=== PATIENT | female | born 1945 | race Caucasian/White ===

== ENCOUNTER 2019-04-01 15:52 | Inpatient (IN) ==
[2019-04-01] MEDS ORDERED: SALINE LOCK IV FLUID XX ONE (16:17)
--- NOTE | 2019-04-01 19:31 | HISTORY AND PHYSICAL ---
CHIEF COMPLAINT: Severe pain in my right leg. HISTORY OF PRESENT ILLNESS: This is a 74-year-old, white female that is well known to me. She has had a little bit of a taras course over the last 3 to 4 weeks. Apparently she has been having fairly severe pain in the right lower extremity and has been seeing Dr. Joe Donovan for that. It was believed that she might have arthritis in her hip and knee, but that has not proven to be the case through diagnostics performed by Dr. Donovan. She also underwent a MRI of the lumbar spine for lumbar radiculopathy, which also did not prove to be an etiology. Her pain continue to just severely worsen. It became extremely excruciating over the weekend, particularly Saturday. She saw Dr. Donovan on Saturday, and he contacted me and asked me to see her in followup. She describes just horrific pain that comes and goes. She cannot walk. Her leg is cold. She cannot bear weight on her leg. In retrospect, she has been having problems now for the last approximately 4 weeks. Because of her presentation in my office and the severity of her pain, she was admitted to [facility]. PAST SURGICAL HISTORY: She had a partial hysterectomy in 1980, bladder sling procedure in 1997. Left knee arthroscope [place] [address] Lauren Salinas. MEDICAL ILLNESSES: She has had a long history of degenerative joint disease, peripheral neuropathy, hypertension. CURRENT MEDICATIONS: Include Nabumetone, Relafen 750 mg b.i.d., gabapentin 300 mg 1 in the morning and 3 at night, Ativan 0.5 mg b.i.d. p.r.n., meclizine 25 mg at bedtime, Flonase p.r.n., Zofran p.r.n., triamterene/hydrochlorothiazide 37.5/25, 1 a day, omeprazole 40 mg a day, lisinopril 20 mg b.i.d., Lotrisone cream p.r.n., dicyclomine 10 mg before meals p.r.n., Singulair 10 mg a day, meloxicam 10 mg 1 a day. She has been using some of her 's narcotic, apparently. ALLERGIES: To Paxil and Phenergan. SOCIAL HISTORY: She is a white female. She has 2 children, both grown. She herself is very active. 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 She stopped smoking in 1979. She does not consume alcohol. FAMILY HISTORY: Remarkable in that she has 2 sisters living, both of which are healthy. She has had 1 brother that has . Her mother at age 58 of breast cancer. Her dad in his 80s of dementia and COPD. PHYSICAL EXAMINATION: GENERAL: Shows a well-developed, white female who is in severe distress due to pain in the right lower extremity. It is unrelenting. HEENT: TMs are clear. Pupils equally round and reactive. Fundi benign. Nasal mucosa is moist. Oropharynx is clear. NECK: Supple. Good carotid pulses. No bruits. LUNGS: Clear. HEART: Regular rate and rhythm. No murmur or gallop. ABDOMEN: Soft, nontender. There are no elicitable pulses of her femoral arteries bilaterally. MUSCULOSKELETAL: The right leg is obviously pale, more so than the left. The right leg is markedly cold and somewhat cyanotic. The left leg is warmer to touch. I find no elicitable pulses of the dorsal pedis or posterior tibialis pulses on either foot. The leg is extremely excruciatingly painful to move. IMPRESSION: 1. By clinical presentation, the right lower extremity particularly his pulseless and extremely cool to touch and pale. I am concerned about the arterial insufficiency/obstruction with the pulseless extremity. The left lower extremity is similar, but it is not quite as severe. I do not detect any femoral artery pulses, which is concerning. 2. I detect no pulsatile abdominal masses. 3. Long history of neuropathic pain of the lower extremities. 4. Long history of hypertension. 5. Long history of generalized degenerative change/arthritis. PLAN: 1. Will admit to [facility]. 2. Will get a stat CTA of the aorta with runoff. 3. Will get a stat Doppler venous arterial flow study of the lower extremities. 4. I have talked with Dr. Fernando Vizcarra via phone, and he is aware of the patient's admission and will follow up with her scans. 5. Will give IV morphine through saline lock. 6. Subcutaneous Lovenox. 7. Will judiciously restart her medications. 8. Will judiciously treat her pain. cc: Christian Shaw MD
[2019-04-01] MEDS: MORPHINE IV PRN (20:18)
[2019-04-01] MEDS: KLONOPIN PO PRN (20:18)
[2019-04-01 20:27] LABS: BASO# 0.08 X1000 (0.0-0.2); BASO% 0.7 % (0.0-0.8); EOS# 0.13 X1000 (0.0-0.7); EOS% 1.1 % (0.0-10.0); HEMATOCRIT 40.5 % (37.0-47.0); HEMOGLOBIN 13.2 g/dL (12.0-16.0); IMM GRAN# 0.07 X1000 (0.0-0.04); IMM GRAN% 0.6 % (0.0-0.5); LYMPH# 2.38 X1000 (1.2-3.4); LYMPH% 19.7 % (20.5-51.1); MCH 29.5 PG (27-31); MCHC 32.6 g/dL (33-37); MCV 90.4 FL (81-99); MONO# 0.77 X1000 (0.11-0.59); MONO% 6.4 % (1.7-9.3); MPV 10.6 FL (7.4-10.4); NEUT# 8.65 X1000 (1.4-6.5); NEUT% 71.5 % (42.2-75.2); PLT 275 X1000 (130-400); RBC 4.48 XMIL (4.2-5.4); RDW 14.1 % (11.5-14.5); WBC 12.08 X1000 (4.8-10.8)
[2019-04-01 20:33] LABS: INR 0.98; PROTIME 13.7 Seconds (11.0-16.0)
--- NOTE | 2019-04-01 20:51 | CONSULTATION ---
DATE OF CONSULTATION: 04/01/2019 HISTORY OF PRESENT ILLNESS: Ms. Jennifer Joy is a 74-year-old white female, patient of Dr. Christian Shaw, who for the last 2 to 3 weeks has been experiencing increasing right lower extremity pain. She states this weekend it has become worse where she has a hard time standing at the counter in the kitchen, or even working in the house. She lays in bed and has to take pain medication because of the pain involving her right leg. She describes the pain mostly in the anterior aspect of her right leg, but really it involves her right thigh and leg. She has seen Dr. Fernando Lau in Orthopedic Surgery and had her hip injected, which helped with some lower back pain and right hip pain, but did not help with the pain going down her leg. She is usually an active lady and has had to take narcotics because of this worsening right lower extremity pain. She is not a smoker. She quit when she was in her 30s. She has had no heart disease. She has never been told that she has atherosclerosis. She has no diabetes. PHYSICAL EXAMINATION: General: Ms. Joy is an overweight older white female who is not in acute distress. She wears glasses. She is awake, cooperative. She has no evidence of jaundice and no oral lesions. Satisfactory dentition. No cervical or supraclavicular lymphadenopathy. Heart: Regular rate. Lungs: Clear to auscultation and percussion bilaterally. Abdomen: Soft. There was no tenderness. She had no costovertebral tenderness. Extremities: She did have palpable femoral pulses bilaterally and they were felt to be equal. It was difficult to palpate her popliteal or pedal pulses. Her right leg did not seem to be cooler than her left. She is able to move her toes and she had feeling involving the right foot. She had no focal deficits. ASSESSMENT: A noninvasive vascular study has been performed and at rest it appeared that she had normal arterial pulse waveforms throughout both lower extremities. Her right ankle-brachial index was 1.12 and left ankle-brachial index was 1.10, suggesting satisfactory arterial flow to both lower extremities. This noninvasive vascular study suggests that this is not a vascular problem involving the pain of her right leg, and I wondered if it could originate from a lower back issue, or a nerve tissue involving her right leg. Her labs have not been drawn. A CT angiogram has not been performed. With this noninvasive vascular study, that CT angiogram probably will not show significant atherosclerosis. cc: MD Christian Thornton MD
[2019-04-01 20:57] LABS: ALB/GLOB RATIO 1.4; ALBUMIN 4.2 g/dL (3.5-5.0); CALCIUM 10.6 mg/dL (8.8-10.2); TOTAL BILIRUBIN 0.2 mg/dL (0.20-1.00); TOTAL PROTEIN 7.3 g/dL (6.3-8.3)
--- NOTE | 2019-04-01 21:09 | VASCULAR LAB ---
PROCEDURE NAME: Arterial Bilateral Legs - 04/01/2019 ORDERING PHYSICIAN: Christian Shaw MD. HISTORY: She is not a diabetic. She does have high blood pressure. She quit smoking 40 years ago. She is a 74-year-old female. INDICATIONS: Pain in her right lower extremity, which is severe. FINDINGS: Systolic brachial blood pressure on the right is 127 mmHg, on the left is 128 mmHg, right high thigh 163 mmHg, left high thigh 177 mmHg, right low thigh 151 mmHg, left low thigh is 162 mmHg, right calf 147 mmHg, left calf 152 mmHg, right ankle 143 mmHg, left ankle 141 mmHg. There is pulsatile flow in both feet and both great toes. At rest, the right ankle-brachial index is 1.12. Left ankle-brachial index is 1.10. INTERPRETATION: There appears to be normal pulse waveforms throughout both lower extremities, and they are equal. She appears to have normal arterial flow to her feet bilaterally at rest. cc: MD Christian Thornton MD
--- NOTE | 2019-04-01 21:21 | Diag Imaging Result Doc PS360 ---
EXAM: CT ANGIOGRAM AORTA W/RUNOFF - 04/01/2019 HISTORY: claudication right leg/pulseless TECHNIQUE: CT angiogram aorta with runoff with intravenous contrast. Axial, coronal, and and 3-D MIP images are obtained. COMPARISON: None. FINDINGS: The aorta, bilateral common iliac arteries, bilateral external iliac arteries, and bilateral common femoral arteries are patent. The bilateral superficial femoral and popliteal arteries are patent. There is relatively intact three vessel lower leg runoff to the ankle on the right. There is possibly some atherosclerotic narrowing of the right posterior tibial artery at the ankle level. There is primarily two-vessel lower leg runoff on the left consisting of the anterior tibial and peroneal arteries. The left posterior tibial artery appears small. There is opacification of some deep venous structures at the left lower leg of uncertain significance, although the possibility of some sort of arteriovenous fistulous communication cannot be excluded. There are lumbar spine degenerative changes noted. There are substantial hypertrophic changes of the right L5-S1 facet. IMPRESSION: Intact appearing runoff on the right to the ankle. There is possible atherosclerotic narrowing of the right posterior tibial artery at the ankle. Intact appearing runoff on the left to the popliteal trifurcation. The left anterior tibial and peroneal arteries appear to be patent to the ankle level. The left posterior tibial artery appears small and may not be patent to the ankle. There is some opacification of deep venous structures noted at the left lower leg. Electronically signed by Cornelius Pimentel 04/01/2019 9:19 PM
[2019-04-01] MEDS: LOVENOX SUBQ SCH (22:57)
[2019-04-01] MEDS: NEURONTIN PO SCH (22:59)
[2019-04-01] MEDS: PRINIVIL PO SCH (22:59)
[2019-04-01] MEDS: SOLU-MEDROL IV SCH (23:00)
[2019-04-01 23:13] LABS: URINE SOURCE CLEAN CATCH
[2019-04-02 00:36] LABS: BILIRUBIN URINE NEGATIVE (NEGATIVE); BLOOD URINE NEGATIVE (NEGATIVE); COLOR YELLOW; GLUCOSE URINE NEGATIVE (NEGATIVE); KETONE URINE NEGATIVE (NEGATIVE); LEUKOCYTES URINE SMALL (NEGATIVE); NITRITE URINE POSITIVE (NEGATIVE); PH URINE 6.5; PROTEIN URINE TRACE mg/dL (NEGATIVE); TURBIDITY URINE CLEAR (CLEAR); UROBILINOGEN URINE NORMAL (NORMAL)
[2019-04-02 00:39] LABS: UR EPITHELIAL CELLS <10 /HPF (<10); URINE BACTERIA 4+ /HPF; URINE RBC <10 /HPF (<10)
[2019-04-02 00:46] LABS: SP GRAVITY URINE < 1.005
[2019-04-02] MEDS: MORPHINE IV PRN ×3 (01:23→22:44)
[2019-04-02] MEDS: LOVENOX SUBQ SCH ×2 (05:53→16:16)
[2019-04-02] MEDS: SOLU-MEDROL IV SCH ×3 (05:53→21:29)
--- NOTE | 2019-04-02 08:03 | EKG Report ---
Test Performed on : 04/02/2019 07:02:02 AM Test Reason : CP Blood Pressure : / mmHG Vent. Rate : 071 BPM Atrial Rate : 071 BPM P-R Int : 134 ms QRS Dur : 074 ms QT Int : 402 ms P-R-T Axes : 042 -11 002 degrees QTc Int : 436 ms Normal sinus rhythm. Voltage criteria for left ventricular hypertrophy Abnormal ECG When compared with ECG of 16-SEP-2016 02:20, No significant change was found Confirmed by Edison HINTON, Zeeshan Del Rosario ([id number]) on 04/03/2019 9:05:29 AM
[2019-04-02] MEDS: PRINIVIL PO SCH ×2 (09:09→21:29)
[2019-04-02] MEDS: KLONOPIN PO PRN (09:09)
[2019-04-02] MEDS: NEURONTIN PO SCH ×2 (09:10→21:29)
[2019-04-02] MEDS ORDERED: TORADOL SCH (12:45)
--- NOTE | 2019-04-02 12:57 | PROGRESS NOTE ---
DATE: 04/02/2019 CURRENT TIME: 1230 hours. CHIEF COMPLAINT: Feeling better. VITAL SIGNS: Temperature 97.9 degrees, pulse 78, respirations 16, blood pressure 122/66, O2 saturation 93% on room air. I and O, she has voided approximately 300 mL. Not all were recorded. She is eating properly. LABORATORY DATA: Urine is growing a gram-negative liam, 100,000 colonies. MRA, please see report. There are some very nonspecific vascular changes, particularly in the left lower extremity. There is a narrowing of the anterior tibial artery. There is also a small narrowing of the right lower anterior tibial at the ankle. There is no obvious obstruction. There is no aneurysm. There are no blockages in the femoral nor iliac areas. PHYSICAL EXAMINATION: General: Shows a pleasant, white female, sitting up, eating lunch and is comfortable. Lungs: Clear. Heart: With a regular rate and rhythm. No murmur, rub, or gallop. Abdomen: Soft. Musculoskeletal: Shows that the [*] is warm and pink. There is still tenderness in the right knee with marked degenerative change of the right knee. IMPRESSION: 1. Extreme unrelenting pain of the right lower extremity which was believed to be vascular insufficiency, which has been proven negative. It does appear that she has fairly extensive degenerative change of the right knee. 2. She does have known sensory/motor nerve neuropathy of the lower extremities and this may be an exacerbation of that disorder. 3. Anxiety/panic which resulted in her extreme pain. PLAN: 1. I did review her MRI done of the lumbar spine done by Dr. Lau. There was no obvious spinal stenosis or impingement issues of the lumbar spine that would account for her problem. 2. We will maximize her medications. 3. We will attempt to try and finish her nuclear bone scan which Dr. Lau had ordered. The patient had been dosed with her nuclear tagged medicine but she was not able to proceed with the imaging portion. I would like to see that before we let her go. cc: Christian Shaw MD
[2019-04-02] MEDS: TORADOL PO SCH ×3 (14:42→22:45)
[2019-04-02] MEDS: MACROBID PO SCH (21:29)
[2019-04-03] MEDS: TORADOL PO SCH ×3 (05:13→15:16)
[2019-04-03] MEDS: SOLU-MEDROL IV SCH ×2 (05:13→14:17)
[2019-04-03] MEDS: LOVENOX SUBQ SCH (05:16)
[2019-04-03] MEDS: MORPHINE IV PRN (09:42)
[2019-04-03] MEDS: PRINIVIL PO SCH (09:43)
[2019-04-03] MEDS: MACROBID PO SCH (09:43)
[2019-04-03] MEDS: NEURONTIN PO SCH (09:44)
[2019-04-03] MEDS: KLONOPIN PO PRN (10:43)
--- NOTE | 2019-04-03 16:06 | Diag Imaging Result Doc PS360 ---
EXAM: BONE SCAN LIMITED INDICATION: unrelenting right hip and leg pain TECHNIQUE: 29.2 mCi of technetium 99 MDP were administered intravenously and AP and lateral images of the pelvis and lower extremities were obtained. COMPARISON: None. FINDINGS: There is no abnormal uptake associated with either hip. There is increased uptake associated with both knees in a degenerative pattern. No other abnormal bony uptake is identified. There is normal excretion of radiotracer by the system. Surrounding soft tissues exhibit normal uptake. IMPRESSION: Degenerative uptake at both knees. Unremarkable, otherwise. Electronically signed by Wilberto Lam 04/03/2019 4:03 PM
[2019-04-03 16:21] VITALS: BP 106/52
--- NOTE | 2019-04-03 17:47 | PROGRESS NOTE ---
DATE: 04/03/2019 CURRENT TIME: 1630 hours. CHIEF COMPLAINT: Much better. VITAL SIGNS: Temperature is 98.8, pulse 76, respirations 16, blood pressure 106/52. I's and O's are good. She ate 100% of her meals. LABORATORY DATA: Nuclear bone scan showed significant degenerative change of both knees. The hips showed no evidence of deterioration. There were no stress fractures, etc. PHYSICAL EXAMINATION: General: Shows a pleasant white female. is at bedside. Lungs: Clear. Heart: With a regular rate and rhythm. No murmur or gallop. Abdomen: Soft. Musculoskeletal: Shows that the right knee is significantly decreased as far as edema. She has minimal tenderness and normal range of motion. There is marked degenerative change and crepitus. IMPRESSION: Severe pain in the right knee, which appears to be degenerative joint disease in etiology. She did not improve positive for claudication/arterial insufficiency. PLAN: We will discharge her to follow up in my office on Saturday. She was instructed to have minimal activity and to alternate heat and ice if necessary. cc: Christian Shaw MD
--- NOTE | 2019-04-03 22:59 | DISCHARGE SUMMARY ---
ADMISSION DATE: 04/01/2019 DISCHARGE DATE: 04/03/2019 PRIMARY DISCHARGE DIAGNOSIS: Severe degenerative joint disease of the right knee. SECONDARY DIAGNOSES: 1. Hypertension. 2. Urinary tract infection. PRIMARY PROCEDURE PERFORMED: Intravenous pain control. OTHER PROCEDURES: 1. Nuclear bone scan. 2. CTA to rule out atherosclerotic obstruction of the legs. 3. Doppler flow arterial flow studies of the lower extremities. DISPOSITION: The patient will be discharged home in good condition. She will see me on Saturday afternoon. She will call my office on Saturday for an appointment. She will be encouraged to ambulate around the house. Alternate heat and ice on the knee. DISCHARGE MEDICATIONS: Her discharge medications will be Macrobid 100 mg q.12 hours for 7 days. She will be given prednisone 20 mg to take 2 tablets a day until she sees me on Saturday. She will continue Prinivil 20 mg b.i.d. She will resume her gabapentin 600 mg b.i.d. She also will take her Nexium 40 mg daily. Nembutal 750 mg b.i.d. Tramadol 50 mg q.6 hours p.r.n. for pain. Triamterene hydrochlorothiazide 37.5/25 mg daily. HOSPITAL COURSE: The patient was admitted with severe, unrelenting pain in the right lower extremity. It was believed that she had a pulseless extremity. There were no pulses that could be ascertained. The leg was pale and cool to touch. Noninvasive Doppler arterial flow studies revealed that she did indeed have good pulses in the feet. A CTA revealed no aortic, femoral, or iliac obstruction. There was some atherosclerotic narrowing of the right posterior tibial artery at the level of the malleolus. There was also an mild narrowing of the left posterior tibial artery extending down to the ankle. It was patent but narrow. There were some opacifications of deep venous structures noted in the left leg as well. The patient was placed on bed rest. She was started on intravenous Solu-Medrol 60 mg q.8 hours. She was given Toradol 10 mg q.8 hours with food with meals. She also was given intravenous morphine 2 mg every 4 hours as needed. Her condition stabilized and markedly improved. Long discussions were made with her and the family. There was no evidence for stress fractures. Dr. Lau had been evaluating her as well, and I will discuss with him on Saturday the findings. He does appear that she may need a total knee replacement. As stated, she was discharged in good condition. cc: Christian Shaw MD
== END 2019-04-03 18:31 | disposition home or self-care (01) | DRG 554 ==
LOC: DIRADM 15:52 → 4N 17:51
PROVIDERS: ADMIT Family Medicine; ATTEND Family Medicine
CPT/HCPCS: 36415; 75635; 78300; 80048; 80053; 81001; 82550; 84550; 85025; 85610; 85651; 86038; 86039; 86431; 87077; 87088; 87186; 93005; 93010; 93923; 93925; A9270; A9503; J1650; J2270; J2930; Q9967

== ENCOUNTER 2019-05-05 06:59 | Day surgery (SDC) ==
--- NOTE | 2019-04-29 08:31 | EKG Report ---
Test Performed on : 04/29/2019 08:14:40 AM Test Reason : PAT Blood Pressure : / mmHG Vent. Rate : 075 BPM Atrial Rate : 075 BPM P-R Int : 148 ms QRS Dur : 068 ms QT Int : 350 ms P-R-T Axes : 052 -01 026 degrees QTc Int : 390 ms Normal sinus rhythm. Minimal voltage criteria for LVH, may be normal variant Borderline ECG When compared with ECG of 02-APR-2019 07:02, No significant change was found Confirmed by Kristina HINTON, Pollo Arevalo ([id number]) on 04/29/2019 9:45:31 AM
[2019-04-29 09:36] LABS: URINE SOURCE CLEAN CATCH
[2019-04-29 09:56] LABS: HEMATOCRIT 32.7 % (37.0-47.0); HEMOGLOBIN 10.7 g/dL (12.0-16.0); MCH 29.9 PG (27-31); MCHC 32.7 g/dL (33-37); MCV 91.3 FL (81-99); RBC 3.58 XMIL (4.2-5.4); WBC 3.35 X1000 (4.8-10.8)
[2019-04-29 09:57] LABS: BASO# 0.03 X1000 (0.0-0.2); BASO% 0.9 % (0.0-0.8); EOS# 0.11 X1000 (0.0-0.7); EOS% 3.3 % (0.0-10.0); IMM GRAN# 0.02 X1000 (0.0-0.04); IMM GRAN% 0.6 % (0.0-0.5); LYMPH# 0.87 X1000 (1.2-3.4); MONO# 0.28 X1000 (0.11-0.59); MONO% 8.4 % (1.7-9.3); MPV 10.3 FL (7.4-10.4); NEUT# 2.04 X1000 (1.4-6.5); NEUT% 60.8 % (42.2-75.2); PLT 179 X1000 (130-400); RDW 14.3 % (11.5-14.5)
[2019-04-29 10:07] LABS: INR 0.98; PROTIME 13.7 Seconds (11.0-16.0)
[2019-04-29 10:08] LABS: PTT 28.7 Seconds (22.3-41.8)
[2019-04-29 10:13] LABS: BILIRUBIN URINE NEGATIVE (NEGATIVE); BLOOD URINE NEGATIVE (NEGATIVE); COLOR YELLOW; GLUCOSE URINE NEGATIVE (NEGATIVE); KETONE URINE NEGATIVE (NEGATIVE); LEUKOCYTES URINE MODERATE (NEGATIVE); NITRITE URINE POSITIVE (NEGATIVE); PROTEIN URINE NEGATIVE (NEGATIVE); SP GRAVITY URINE 1.017; TURBIDITY URINE HAZY (CLEAR); UROBILINOGEN URINE NORMAL (NORMAL)
[2019-04-29 10:15] LABS: UR EPITHELIAL CELLS <10 /HPF (<10); URINE BACTERIA 4+ /HPF; URINE RBC <10 /HPF (<10); URINE WBC 20-40 /HPF (<10)
[2019-04-29 11:24] LABS: AGAP 10; BUN 14 mg/dL (8-22); CHLORIDE 107 mmol/L (98-107); COSMO 282; CREATININE 0.9 mg/dL (0.5-0.9); ESTIMATED GFR > 60; GLUCOSE 99 mg/dL (70-104); POTASSIUM 4.4 mmol/L (3.5-5.1); SODIUM 141 mmol/L (136-145); TCO2 24 mmol/L (25-35)
[2019-05-05] MEDS ORDERED: REGLAN ONE (07:22)
[2019-05-05] MEDS ORDERED: CELEBREX ONE (07:22)
[2019-05-05] MEDS ORDERED: COLACE ONE (07:22)
[2019-05-05] MEDS ORDERED: PEPCID ONE (07:22)
[2019-05-05] MEDS ORDERED: LYRICA ONE (07:22)
[2019-05-05] MEDS ORDERED: KEFZOL 1 GM/D5W 2 GM/100 ML IVPB ONE (07:23)
[2019-05-05] MEDS ORDERED: LR 1,000 ML ONE (07:23)
[2019-05-05] MEDS ORDERED: DURAMORPH ONE (07:39)
[2019-05-05] MEDS ORDERED: MARCAINE 0.25% PF/EPI 1:200,000 ONE (07:40)
[2019-05-05] MEDS ORDERED: TORADOL ONE (07:40)
[2019-05-05] MEDS ORDERED: SODIUM CHLORIDE 0.9% ONE (07:40)
[2019-05-05] MEDS ORDERED: VANCOMYCIN ONE (07:40)
[2019-05-05] MEDS ORDERED: EXPAREL 1.3% ONE (07:41)
[2019-05-05] MEDS ORDERED: NEOSPORIN G.U. IRRIGANT ONE (07:41)
[2019-05-05] MEDS ORDERED: DIPRIVAN 1% ONE ×3 (07:59→09:43)
[2019-05-05] MEDS ORDERED: ZOFRAN ONE (08:14)
[2019-05-05] MEDS ORDERED: DECADRON ONE ×2 (08:14→08:54)
[2019-05-05] MEDS ORDERED: OFIRMEV 1000 MG/ISOTONIC SOLN 1,000 MG/100 ML BOTTLE ONE (08:14)
[2019-05-05] MEDS: CYKLOKAPRON 1,000 MG/NS 2,000 MG/200 ML IVPB ONE ×2 (08:29→09:30)
[2019-05-05 10:10] LABS: URINE SOURCE CATH
[2019-05-05 10:14] LABS: BILIRUBIN URINE NEGATIVE (NEGATIVE); BLOOD URINE NEGATIVE (NEGATIVE); COLOR YELLOW; GLUCOSE URINE NEGATIVE (NEGATIVE); KETONE URINE NEGATIVE (NEGATIVE); LEUKOCYTES URINE NEGATIVE (NEGATIVE); NITRITE URINE NEGATIVE (NEGATIVE); PROTEIN URINE NEGATIVE (NEGATIVE); TURBIDITY URINE CLEAR (CLEAR); UROBILINOGEN URINE NORMAL (NORMAL)
[2019-05-05 10:15] LABS: UR EPITHELIAL CELLS <10 /HPF (<10); URINE BACTERIA NEGATIVE /HPF; URINE RBC <10 /HPF (<10); URINE WBC <10 /HPF (<10)
[2019-05-05] MEDS ORDERED: OXY IR ONE (10:40)
[2019-05-05] MEDS ORDERED: NS 1,000 ML ONE (10:40)
--- NOTE | 2019-05-05 10:53 | Diag Imaging Result Doc PS360 ---
KNEE 1-2 VIEWS-RIGHT - 05/05/2019 INDICATION: post op total knee TECHNIQUE: Two views COMPARISON: CT from 10/02/2018 FINDINGS: There has been placement of a right total knee prosthesis. Alignment is anatomic. No fracture or loosening. IMPRESSION: No complication. Electronically signed by Sage Flores 05/05/2019 10:51 AM
[2019-05-05] MEDS ORDERED: OXY IR PO PRN (11:30)
[2019-05-05] MEDS ORDERED: MORPHINE IV PRN ×3 (11:30)
[2019-05-05] MEDS ORDERED: ZOFRAN IV PRN (11:30)
[2019-05-05] MEDS: NS 1,000 ML IV SCH (13:16)
[2019-05-05] MEDS: ULTRAM PO SCH ×2 (13:18→17:16)
[2019-05-05] MEDS: OXY IR PO PRN ×2 (13:56→23:52)
[2019-05-05] MEDS: TYLENOL PO SCH ×2 (14:10→22:08)
[2019-05-05] MEDS: PERIDEX MT SCH ×2 (14:11→22:11)
--- NOTE | 2019-05-05 14:13 | OPERATIVE NOTE ---
PROCEDURE DATE: 05/05/2019 PREOPERATIVE DIAGNOSIS: Degenerative joint disease, right knee. POSTOPERATIVE DIAGNOSIS: Degenerative joint disease, right knee. PROCEDURE PERFORMED: Right total knee replacement. SURGEON: Elmira Lau MD. [employer] SUPERVISOR: OVI Sparks. Mr. Christine was necessary for proper retraction and manipulation of the knee during the case. ANESTHESIA: Spinal. COMPLICATIONS: None. PROCEDURE IN DETAIL: A 74-year-old female presents for surgical right knee replacement. Risks, benefits, and no guarantees were discussed, and she is willing to proceed. She was taken to the operating room and satisfactory anesthesia obtained. The right knee was prepped and draped in usual sterile fashion. A time-out was taken to confirm operative site, procedure, and patient. The leg was wrapped with an Esmarch and tourniquet inflated to 350 mmHg. A midline incision was made over the front of the knee followed by a quad tendon sparing arthrotomy. The patella was everted and resurfaced with freehand technique and sized to a size 35 medialized dome patella. With the patella subluxed laterally, the knee was flexed. An intramedullary hole made in the distal femur, and the distal femoral cutting block secured in 5 degrees of valgus. Distal femoral resection was then made, and the femur sized to a DePuy Attune size 6 narrow femoral implant. The 4 in 1 block was secured and the anterior, posterior, and chamfer cuts sequentially made with care taken to preserve the collateral ligaments. Any remaining osteophytes were debrided off the femur, and the knee was flexed and a PCL retractor placed behind the tibia to protect the PCL and neurovascular bundle. The tibial resection was made after aligning the tibial cutting block with extramedullary alignment rods, and tibial resection made. Flexion and extension gaps were equal with a 5 mm spacer. The tibia was sized to a size 6 tibial tray. A trial reduction was performed with a 6 tibial tray, 6 cruciate retaining femoral component, and a 5 mm cruciate retaining spacer with good stability. Midline patellar tracking of the 35 mm medialized dome patella was noted as well. Drill holes were placed for the femoral component and patella, and the trial components removed. The bony surfaces were thoroughly irrigated with pulsatile lavage. Cement with a gram of vancomycin was utilized to cement a size 6 DePuy Attune rotating platform tibial tray, a size 6 right narrow cruciate retaining femoral component, and a 35 medialized dome patella. After cementing, any excess cement was removed with a [place] elevator as necessary. While the cement cured, the joint capsule was injected with Exparel and a Hemovac drain placed. After curing of the cement, a 5 mm size 6 cruciate retaining polyethylene bearing was inserted into the tibial tray and the knee reduced. Final range of motion was 0 to 130 degrees with midline patellar tracking and good soft tissue balance. The arthrotomy was copiously irrigated and closed in layers with #1 Vicryl in the arthrotomy, 2-0 Vicryl in the subcutaneous, and skin katherine on the skin edges. Sterile dressings completed the closure. The patient was recovered from anesthesia and transferred to the recovery room in stable condition. No intraoperative complications were noted. Instrument count and sponge count was correct at the time of closure. cc: Wilberto Lau MD
[2019-05-05] MEDS: KEFZOL 2 GM/D5W 2 GM/50 ML IVPB IV SCH (15:04)
--- NOTE | 2019-05-05 17:02 | ORTHOPAEDICS PROGRESS NOTE ---
DATE: 05/05/2019 Ms. Joy is seen status post surgical knee replacement. Her vital signs are stable. Postoperative x-ray showed good alignment of the prosthesis. Her bandage is clean and dry. She has already been up and mobilizing. We will plan on gradually continuing to mobilize and discontinuing her lines and IV. She can be discharged home when she is mobilizing well and off IV medications. cc: Wilberto Lau MD
[2019-05-05] MEDS ORDERED: FIBERCON PO SCH (21:00)
[2019-05-05] MEDS ORDERED: COLACE PO SCH (21:00)
[2019-05-05] MEDS ORDERED: NEURONTIN PO SCH (21:00)
[2019-05-05] MEDS: CELEBREX PO SCH (22:07)
[2019-05-05] MEDS: PRINIVIL PO SCH (22:07)
[2019-05-05] MEDS ORDERED: SEPTRA DS PO ONE (22:42)
[2019-05-06] MEDS: KEFZOL 2 GM/D5W 2 GM/50 ML IVPB IV SCH (01:03)
[2019-05-06] MEDS: TYLENOL PO SCH ×2 (01:03→10:00)
[2019-05-06] MEDS: ULTRAM PO SCH ×3 (01:04→12:56)
[2019-05-06] MEDS: NS 1,000 ML IV SCH (02:38)
[2019-05-06 05:50] LABS: HEMATOCRIT 28.6 % (37.0-47.0); HEMOGLOBIN 9.3 g/dL (12.0-16.0)
[2019-05-06 06:10] LABS: AGAP 12; BUN 18 mg/dL (8-22); CALCIUM 8.8 mg/dL (8.8-10.2); CHLORIDE 106 mmol/L (98-107); COSMO 276; CREATININE 0.9 mg/dL (0.5-0.9); ESTIMATED GFR > 60; GLUCOSE 105 mg/dL (70-104); POTASSIUM 4.2 mmol/L (3.5-5.1); SODIUM 137 mmol/L (136-145); TCO2 19 mmol/L (25-35)
[2019-05-06] MEDS ORDERED: PRILOSEC PO SCH (07:00)
--- NOTE | 2019-05-06 07:13 | ORTHOPAEDICS PROGRESS NOTE ---
DATE: 05/06/2019 SUBJECTIVE: Ms. Joy is seen status post total knee. She is afebrile with stable vital signs. Hematocrit is 28. Incision is clean and dry. She is mobilizing well. There are no signs of infection, DVT, or complication. She is discharged home for home therapy. Will follow up with her in 12 days. She is to continue her regular medicines, as well as Ayr as needed for pain, aspirin for DVT prophylaxis, and antibiotic for wound prophylaxis. She is to return in the interim for any worsening signs or symptoms. cc: Wilberto Lau MD
[2019-05-06] MEDS ORDERED: PEPCID PO SCH (09:00)
[2019-05-06] MEDS ORDERED: ZYLOPRIM PO SCH (09:00)
[2019-05-06] MEDS ORDERED: MAXZIDE-25 PO SCH (09:00)
[2019-05-06] MEDS ORDERED: NEURONTIN PO SCH (09:00)
[2019-05-06] MEDS ORDERED: SEPTRA DS PO SCH (09:00)
[2019-05-06] MEDS ORDERED: ASPIRIN PO SCH (09:00)
[2019-05-06] MEDS: PRINIVIL PO SCH (09:59)
[2019-05-06] MEDS: CELEBREX PO SCH (09:59)
[2019-05-06 11:43] VITALS: BP 125/58
== END 2019-05-06 13:59 | disposition home health service (06) ==
LOC: OR 06:59 → 4N 06:59 → OR 05-06 13:59
PROVIDERS: ATTEND Orthopaedic Surgery Adult Reconstructive Orthopaedic Surgery
CPT/HCPCS: 73560; 80048; 81001; 85014; 85018; 85025; 85610; 85730; 86850; 86900; 86901; 88305; 88311; 93005; 93010; 97110; 97116; 97162; 97530; A9270; C9290; J0131; J0690; J1100; J1885; J2274; J2275; J2405; J3370; J7030; J7120; Q9974; S0020